=== PATIENT | female | born 1965 | race Caucasian/White ===

== ENCOUNTER → 2016-12-25 | Outpatient (CLI) | payer OTHER ==
[~2016-12-25] MED LIST: ATOR10TA88 PO; BUPR-79 PO; BUPRTAB51 PO; CYM/60 PO; DULO60CA44 PO; GABA-113 PO; GABA800T PO; NAPR1TAB9 PO; NRN/300 PO; TRAM-10 PO; TRAZ50TA35 PO
--- NOTE | 2016-12-25 11:08 | DIAGNOSTIC IMAGING REPORT ---
RIGHT HAND MIN 3 VIEWS CLINICAL HISTORY: Right hand pain. COMPARISON: None. DISCUSSION: The bony mineralization appears normal. No fractures are visualized. There are tiny periarticular calcifications adjacent to the medial aspect of the distal interphalangeal joint of the index finger. There is a tiny erosion involving the base of the distal phalanx of the index finger. IMPRESSION: 1. No acute fractures 2. Tiny periarticular calcifications at the level the distal interphalangeal joint of the index finger. Electronically signed by: Pramod Mckeon M.D. 12/25/2016 11:06 AM Dictated Date/Time: 12/25/2016 11:05 AM
--- NOTE | 2016-12-26 13:14 | DIAGNOSTIC IMAGING REPORT ---
LEFT HAND MIN 3 VIEWS CLINICAL HISTORY: Left hand pain COMPARISON: None. DISCUSSION: 3 views reveal normal mineralization for age. No fractures or dislocations are visualized. There are no erosive or destructive changes. Minimal degenerative changes are evident. IMPRESSION: Minimal degenerative change. Normal study for age. Electronically signed by: Pramod Mckeon M.D. 12/26/2016 1:13 PM Dictated Date/Time: 12/26/2016 1:12 PM
== END | disposition home or self-care (01) ==
LOC: C.RDSM 16:14
PROVIDERS: ATTEND Physical Medicine & Rehabilitation Sports Medicine
DX: R52 Pain, unspecified (principal)

== ENCOUNTER → 2017-01-23 | Day surgery (SDC) | payer OTHER ==
[2017-01-10 08:22] VITALS: Ht 172.7 cm; Wt 90.9 kg
[~2017-01-23] VITALS: Ht 172.7 cm; Wt 90.9 kg
[~2017-01-23] MED LIST changes: +ATROPINE SULFATE 0.1 MG/ML 5ML SYR IV PRN; +BUPIVACAINE 0.5 % 5 MG/1 ML MPF 30ML VIAL ONE; -BUPRTAB51 PO; +CEFAZOLIN 2000 MG/60 ML D5W IV SCH; -DULO60CA44 PO; +EpHEDrine SULFATE INJ 50 MG/ML AMP IV PRN; +FENTANYL CITRATE INJ 50 MCG/1 ML 2 ML VIAL ONE; -GABA-113 PO; +LACTATED RINGER'S 1000ML 1,000 ML IV SCH; +LIDOCAINE HCL 2% LOCAL 20 ML VIAL ONE; +MIDAZOLAM HCL 1 MG/ML 2ML VIAL ONE; +SODIUM CHLORIDE 0.9% 1000ML 1,000 ML IV SCH; -TRAM-10 PO
--- NOTE | 2017-01-23 06:47 | History & Physical Bridge Note ---
H&P Re-Evaluation Bridge Note: I have examined the patient, reviewed the History & Physical and in the interval since the performance of the History & Physical I have noted the following changes of clinical significance: No changes noted
--- NOTE | 2017-01-23 06:49 | Discharge Instructions ---
Discharge Instructions Date of Service Jan 23, 2017. Visit Reason for Visit: Left Trigger Thumb Discharge Discharge Diagnosis / Problem: same Discharge Goals Goal(s): Decrease discomfort, Improve function Medications Stopped Medications Name(s): na Restart Stopped Medication(s): resume all scripts Activity Recommendations Activity Limitations: as noted below Lifting Limitations: until after follow-up appointment Exercise/Sports Limitations: until after follow-up appointment May Resume Sexual Activity: when tolerated Shower/Bathe: keep incision dry Driving or Machine Use: no limitations Anesthesia . Post Anesthesia Instructions: If you have had General Anesthesia or IV Sedation: * Do not drive today. * Resume driving when surgeon permits. * Do not make important decisions or sign legal documents today. * Call surgeon for: 1. Temperature elevations greater than 101 degrees F. 2. Uncontrollable pain. 3. Excessive bleeding. 4. Persistent nausea and vomiting. 5. Medication intolerance (nausea, vomiting or rash). * For nausea and vomiting use only clear liquids such as: tea, soda, bouillon until nausea subsides, then gradually increase diet as tolerated. * If you have any concerns or questions, call your surgeon's office. If physician is unavailable and it is an emergency, call 911 or go to the nearest emergency room. . Instructions / Follow-Up Instructions / Follow-Up The following are instructions to follow after minor hand surgery. ACTIVITY RECOMMENDATIONS: * Minimize activity until your first visit after surgery. * No excessive walking, jogging, sports or laboring. * Return to activity is individualized. Most patients are able to return to everyday activities within 2 weeks. * Return to sports or intensive labor usually occurs at 1-2 months. * DRIVING: Driving may be resumed when you feel you have adequate pain control and use of the hand. * BATHING: You may shower or sponge-bathe immediately after surgery. The dressing will need to be covered with a plastic bag or plastic wrap until the dressing is changed on the fourth or fifth day after surgery. Once the dressing has been changed on the fourth or fifth day after surgery, you may shower and get the incision wet. * Wash with regular soap and water. * Do not bathe (submerge the incision), soak, swim or use a hot tub until the incision is completely healed over with normal skin and the doctor has given the OK to proceed. * There is no need to apply any ointments, powders or salves to your incision. * Do not apply alcohol or hydrogen peroxide directly to the incision. Diluted peroxide (50:50 mixture with sterile saline) may be used to clean dried blood from around the incision area. WORK/SCHOOL: * You may return to sedentary work or school when you are feeling comfortable. This is usually 3-7 days after surgery. * Expect increased discomfort with increased activity. Continue to elevate and ice the hand as much as possible. DIET: * Resume previous diet. MEDICATIONS: * You will have a prescription for pain medication and an anti-inflammatory medication after surgery. Use the pain pills for severe pain and the anti-inflammatory for less severe pain. * Once the pain pills have run out, try to use the anti-inflammatory. If this is not effective then contact the office for assistance. * The pain medication may cause nausea, constipation and sleepiness. You should see how they affect you before driving or similar activity. * The anti-inflammatory may cause stomach upset and bleeding. If this occurs, let your doctor know immediately . * Some patients may need blood clot prevention. This can be done with either a pill or a simple shot. Your doctor will advise you on when to begin these medications and how to take them. * Do not take aspirin or other anti-inflammatory products (i.e. Advil or Aleve ) if taking blood thinner medication. * Take a stool softener like Colace or a stimulant like Senokot to prevent constipation. SPECIAL CARE INSTRUCTIONS: ICE: * Do not apply ice directly to the skin. * Use a thin dressing or stockinet between the skin and ice bag. The dressing in place after surgery will suffice. * Apply ice for 20-30 minutes and repeat every 2-4 hours. This is especially important for the first 3-7 days after surgery. * Once the pain improves, use ice as needed. ELEVATION: * Keep your hand elevated at or above the level of your heart as much as possible. * Expect some increased discomfort and swelling if you allow your hand to hang down for any length of time. DRESSING: * Your dressing will be changed 4-5 days after surgery by the physical therapist or physician's marketing administrative assistant. Leave your dressing intact until this time. * You may then change your dressing daily with clean dry gauze or Band-aids and a soft wrap or stockinet. * Always wash your hands prior to touching the incision area. * Once the stitches are removed, you may leave the wound open to air or cover with a thin bandage. * There is no need to apply any ointments, powders or salves to your incision. * Expect some bloody drainage for the first few days after surgery. * Leave the tape strips in place (if present) for 5-7 days. * The initial dressing after surgery may become soaked with blood or fluid which is normal. You may reinforce your dressing with clean, dry gauze as needed. BRACE: * Bracing is generally not needed after routine hand surgery. THERAPY: * Physical therapy may be prescribed after your surgery. * For carpal tunnel and trigger digit surgery you may begin moving your fingers and wrist immediately after surgery as tolerated. * Be careful to not overuse. * Once the sutures are removed, further range of motion exercises can be performed. * Hand incisions may be very sensitive for a few months after surgery so avoid excessive pressure on the incision. If necessary, use a padded weightlifters' glove. * You may massage the incision with skin cream to make it less sensitive and reduce scarring. * Hand strength usually returns with normal use. * If needed, squeezing a soft sponge or Play-dough may help. * Your doctor will recommend physical therapy if necessary. PROBLEMS/QUESTIONS: * If you have any problems such as severe pain, numbness, tingling or high fevers or if you have any questions, please contact the office at [phone]. * It is not uncommon to have some numbness and tingling after the surgery especially if you have had a nerve block done. This should gradually improve over the first 1- 2 days. If this persists longer or worsens then contact the office. FOLLOW UP VISIT: * If not already scheduled, please call the office at to schedule follow-up appointments for approximately 10 days, 6 weeks and 3 months after surgery. Diet Recommendations Recommended Home Diet: resume previous diet Procedures Procedures Performed: left trigger release Pending Studies Studies pending at discharge: no Medical Emergencies . Who to Call and When: Medical Emergencies: If at any time you feel your situation is an emergency, please call 911 immediately. . Non-Emergent Contact Non-Emergency issues call your: Specialist Call Non-Emergent contact if: temperature is above 101.5 . . "Provider Documentation" section prepared by Jensen Panda.
--- NOTE | 2017-01-23 08:07 | Anesthesia Progress Nt - [facility] ---
Anesthesia Post Op Note Date & Time Jan 23, 2017 at 08:07 Vital Signs Pain Intensity: 4 Vital Signs Past 12 Hours Date Time Temp Pulse Resp B/P Pulse Ox O2 Delivery O2 Flow Rate FiO2 01/23/17 06:37 36.8 79 18 138/90 98 Room Air Notes Mental Status: alert / awake / arousable, participated in evaluation Pt Amnestic to Procedure: Yes Nausea / Vomiting: adequately controlled Pain: adequately controlled Airway Patency, RR, SpO2: stable & adequate BP & HR: stable & adequate Hydration State: stable & adequate Anesthetic Complications: no major complications apparent
[2017-01-23 08:09] VITALS: TEMP 36.6
--- NOTE | 2017-01-23 08:09 | [facility] Post Operative Brief Note ---
Immediate Operative Summary Operative Date Jan 23, 2017. Pre-Operative Diagnosis Left Trigger Thumb Post-Operative Diagnosis Same Procedure(s) Performed Left Thumb Open A1 Dustin Release Surgeon Dr Panda Raw Sampler Surgeon(s) Agusto Carlisle PA-C Estimated Blood Loss Trace Findings trigger with tendon fraying Fluids (cc crystalloids) see anesthesia report Specimens None Drains none Anesthesia local/sedation Complication(s) None Disposition Recovery Room / PACU
--- NOTE | 2017-01-23 08:28 | OPERATIVE REPORT ---
DATE OF OPERATION: 01/23/2017 SURGEON: Dr. Jensen Panda. INSPECTOR WREATH: Abiel Carlisle PA-C. No resident or fellow available. PREOPERATIVE DIAGNOSIS: Left trigger thumb. POSTOPERATIVE DIAGNOSIS: Same. OPERATION PERFORMED: Left trigger thumb release. PERIOPERATIVE SITUATION: Medically cleared female with intractable thumb triggering bilaterally, left and right, wants to proceed with a left first. OPERATION: The patient was appropriately identified, site verified, consent verified, and 2 grams of Ancef confirmed as being given. The left upper extremity was injected with 3 mL of 0.5% Marcaine plain and 3 mL of 2% plain lidocaine in the area of the MCP flexion crease of the left thumb. The arm was then prepped and draped in the usual routine fashion with a forearm tourniquet. The tourniquet was inflated to 250 mmHg after exsanguination of limb with a rubber Esmarch bandage for a total of 10 minutes. A curvilinear incision was made based over the MCP joint. Full thickness flaps raised. Care was taken to protect the digital nerves, which were identified, but not dissected cleanly. The area of the mass of the flexor cyst was identified. This area was then dissected with the [place] elevator and fully identified from proximal to distal and then released. There was some fraying of the tendon, which was debrided. The floor of the canal of the flexor sheath had no masses. The patient was then asked to move her finger through a full range of motion and there was no catching. The wound was then irrigated and closed with horizontal 3-0 nylon mattress sutures, Dermabond and a light dressing. The patient was then transferred to [facility] area in satisfactory condition having tolerated the procedure well. ESTIMATED BLOOD LOSS: Trace. CRYSTALLOID: Per anesthesia report. I attest to the content of the Intraoperative Record and any orders documented therein. Any exceptions are noted below. MTDD
[2017-01-23 08:44] VITALS: BP 123/80; PULSE 67; O2SAT 98
--- NOTE | 2017-01-23 08:51 | OPERATIVE REPORT ---
PREOPERATIVE DIAGNOSIS: Left thumb trigger digit. POSTOPERATIVE DIAGNOSIS: Left thumb same. PROCEDURE: Left thumb open trigger digit release. SURGEON: Dr. Panda. OUTSOLE SKIVER: Abiel Carlisle PA-C. HISTORY OF PRESENT ILLNESS: This 51-year-old white female presented to the office with complaints of triggering and pain in her left thumb. She had tried conservative care measures without success. She elected to proceed with surgical intervention after being educated about potential risks and outcomes. OPERATION: The patient was taken to the operating room where she was given local anesthetic and sedation. She was prepped and draped in the usual sterile fashion. Please see Dr. Panda's operative report for specifics of the procedure. I was present for the entire case from initial patient positioning through final wound closure. Assistance was provided in tissue retraction, hemostasis, and final wound closure. The patient was taken to phase 2 recovery in satisfactory condition. BISI
== END | disposition home or self-care (01) ==
LOC: X.SURG 06:20
PROVIDERS: ATTEND Physical Medicine & Rehabilitation Sports Medicine
DX: M65.312 Trigger thumb, left thumb (principal); Z88.0 Allergy status to penicillin

== ENCOUNTER → 2017-03-13 | Day surgery (SDC) | payer OTHER ==
[2017-02-21 09:56] VITALS: Ht 172.7 cm; Wt 90.9 kg
[~2017-03-13] VITALS: Ht 172.7 cm; Wt 90.9 kg
[~2017-03-13] MED LIST changes: +ATOR10TA82 PO; -ATOR10TA88 PO; -BUPIVACAINE 0.5 % 5 MG/1 ML MPF 30ML VIAL ONE; +BUPIVACAINE 0.5 % 5 MG/1 ML PF 10ML VIAL ONE; +FENTANYL CITRATE INJ 50 MCG/1 ML 2 ML VIAL IV PRN; +LIDOCAINE HCL 2% 2 ML VIAL (20MG/ML) ONE; +ONDANSETRON INJ 2 MG/ML 2 ML VIAL IV PRN; +ONDANSETRON INJ 2 MG/ML 2 ML VIAL ONE; +PROPOFOL IV EMULSION 10 MG/ML 20 ML VIAL IV ONE
--- NOTE | 2017-03-13 06:40 | Discharge Instructions ---
Discharge Instructions Date of Service March 13, 2017. Visit Reason for Visit: Right Trigger Thumb Discharge Discharge Diagnosis / Problem: same Discharge Goals Goal(s): Decrease discomfort, Improve function Medications Stopped Medications Name(s): na Restart Stopped Medication(s): resume all meds as directed by scripts Activity Recommendations Activity Limitations: as noted below Lifting Limitations: until after follow-up appointment Exercise/Sports Limitations: until after follow-up appointment May Resume Sexual Activity: when tolerated Shower/Bathe: keep incision dry Driving or Machine Use: no limitations Anesthesia . Post Anesthesia Instructions: If you have had General Anesthesia or IV Sedation: * Do not drive today. * Resume driving when surgeon permits. * Do not make important decisions or sign legal documents today. * Call surgeon for: 1. Temperature elevations greater than 101 degrees F. 2. Uncontrollable pain. 3. Excessive bleeding. 4. Persistent nausea and vomiting. 5. Medication intolerance (nausea, vomiting or rash). * For nausea and vomiting use only clear liquids such as: tea, soda, bouillon until nausea subsides, then gradually increase diet as tolerated. * If you have any concerns or questions, call your surgeon's office. If physician is unavailable and it is an emergency, call 911 or go to the nearest emergency room. . Diet Recommendations Recommended Home Diet: resume previous diet Procedures Procedures Performed: right trigger thumb release Pending Studies Studies pending at discharge: no Medical Emergencies . Who to Call and When: Medical Emergencies: If at any time you feel your situation is an emergency, please call 911 immediately. . Non-Emergent Contact Non-Emergency issues call your: Specialist Call Non-Emergent contact if: temperature is above 101.5 . . "Provider Documentation" section prepared by Jensen Panda. .
[2017-03-13 07:22] VITALS: TEMP 36.6
--- NOTE | 2017-03-13 07:22 | [facility] Post Operative Brief Note ---
Immediate Operative Summary Operative Date March 13, 2017. Pre-Operative Diagnosis Right Trigger Thumb Post-Operative Diagnosis Same Procedure(s) Performed Right Trigger Thumb Release Surgeon Dr. Panda Jelly Filter Tender Surgeon(s) Agusto Carlisle PA-C Estimated Blood Loss Trace Findings trigger/tendon fraying Fluids (cc crystalloids) see anesthesia report Specimens None Drains none Anesthesia local/sedation Complication(s) None Disposition Recovery Room / PACU
--- NOTE | 2017-03-13 07:36 | OPERATIVE REPORT ---
DATE OF OPERATION: 03/13/2017 SURGEON: Dr. Panda. NETWORK DESIGN ARCHITECT: Abiel Carlisle PA-C. No resident or fellow available. PREOPERATIVE DIAGNOSIS: Trigger thumb right. POSTOPERATIVE DIAGNOSIS: Same. OPERATION PERFORMED: Right trigger thumb release. ANESTHESIA: Local by surgeon; sedation by anesthesia. PERIOPERATIVE SITUATION: Medically cleared female with intractable thumb locking and catching. Has some degenerative disease throughout the hand. This will not address that. She understands this is just for her trigger thumb. PROCEDURE: The patient appropriately identified, site verified, consent verified, 2 grams of Ancef confirmed as being given. The area was injected with 4 mL of 0.5% plain Marcaine and 4 mL of 2% plain lidocaine. The arm was then prepped in usual routine fashion. Tourniquet inflated to 250 mmHg after exsanguination of limb with a rubber Esmarch bandage for a total of approximately 10 minutes. An incision was then made based at the MCP joint. Flaps raised. Care taken to protect the digital nerves to the thumb. The flexor mechanism identified and the levi identified proximally. It was nicked and then split with the scissors up into the most proximal aspect of the oblique levi. The tendon was then noted to have some fraying; this was debrided, it was very superficial. Tendon had good continuity. Patient had good active extension and flexion of the thumb under command. The wound was then irrigated and then closed with horizontal and simple mattress 4-0 nylon suture, Dermabond and a light dressing. ESTIMATED BLOOD LOSS: Trace. CRYSTALLOID: Per anesthesia. No DVT prophylaxis required. I attest to the content of the Intraoperative Record and any orders documented therein. Any exceptio ns are noted below.
--- NOTE | 2017-03-13 07:47 | Anesthesia Progress Nt - [facility] ---
Anesthesia Post Op Note Date & Time March 13, 2017 at 07:47 Vital Signs Pain Intensity: 0 Vital Signs Past 12 Hours Date Time Temp Pulse Resp B/P Pulse Ox O2 Delivery O2 Flow Rate FiO2 03/13/17 07:22 36.6 75 18 109/71 96 Room Air 03/13/17 06:27 37.1 79 20 134/87 97 Room Air Notes Mental Status: alert / awake / arousable, participated in evaluation Pt Amnestic to Procedure: Yes Nausea / Vomiting: adequately controlled Pain: adequately controlled Airway Patency, RR, SpO2: stable & adequate BP & HR: stable & adequate Hydration State: stable & adequate Anesthetic Complications: no major complications apparent
[2017-03-13 07:49] VITALS: BP 133/82; PULSE 70; O2SAT 100
--- NOTE | 2017-03-13 12:06 | OPERATIVE REPORT ---
PREOPERATIVE DIAGNOSIS: Right trigger thumb. POSTOPERATIVE DIAGNOSIS: Right thumb same. PROCEDURE: Right open trigger thumb release. SURGEON: Dr. Panda. DIRECTOR OF NUCLEAR MEDICINE: Abiel Carlisle PA-C. HISTORY OF PRESENT ILLNESS: This 51-year-old white female presented to the office with complaints of right thumb triggering, locking, and catching. She had tried conservative care measures without success. She elected to proceed with surgical intervention after being educated about potential risks and outcomes. She previously had a successful trigger thumb release on the left. OPERATION: The patient was taken to the operating room where she was given local anesthetic and sedation. She was prepped and draped in the usual sterile fashion. Please see Dr. Panda's operative report for specifics of the procedure. I was present for the entire case from initial patient positioning through final wound closure. Assistance was provided in patient position, tissue retraction, final wound closure. The patient was taken to the recovery room in satisfactory condition.
== END | disposition home or self-care (01) ==
LOC: X.SURG 06:03
PROVIDERS: ATTEND Physical Medicine & Rehabilitation Sports Medicine
DX: M65.311 Trigger thumb, right thumb (principal); E78.00 Pure hypercholesterolemia, unspecified; M19.90 Unspecified osteoarthritis, unspecified site; E66.9 Obesity, unspecified

== ENCOUNTER → 2017-04-09 | Outpatient (CLI) | payer OTHER ==
[~2017-04-09] MED LIST changes: -ATROPINE SULFATE 0.1 MG/ML 5ML SYR IV PRN; -BUPIVACAINE 0.5 % 5 MG/1 ML PF 10ML VIAL ONE; -CEFAZOLIN 2000 MG/60 ML D5W IV SCH; -EpHEDrine SULFATE INJ 50 MG/ML AMP IV PRN; -FENTANYL CITRATE INJ 50 MCG/1 ML 2 ML VIAL IV PRN; -FENTANYL CITRATE INJ 50 MCG/1 ML 2 ML VIAL ONE; -LACTATED RINGER'S 1000ML 1,000 ML IV SCH; -LIDOCAINE HCL 2% 2 ML VIAL (20MG/ML) ONE; -LIDOCAINE HCL 2% LOCAL 20 ML VIAL ONE; -MIDAZOLAM HCL 1 MG/ML 2ML VIAL ONE; -ONDANSETRON INJ 2 MG/ML 2 ML VIAL IV PRN; -ONDANSETRON INJ 2 MG/ML 2 ML VIAL ONE; -PROPOFOL IV EMULSION 10 MG/ML 20 ML VIAL IV ONE; -SODIUM CHLORIDE 0.9% 1000ML 1,000 ML IV SCH
--- NOTE | 2017-04-09 10:13 | DIAGNOSTIC IMAGING REPORT ---
MRI OF THE LEFT KNEE CLINICAL HISTORY: Chronic left knee pain. Osteoarthritis. COMPARISON STUDY: Radiographs of the left knee dated 10/23/2016. TECHNIQUE: MRI of the left knee was performed utilizing proton density, T1, and T2-weighted sequences in the axial, sagittal, coronal planes. IV contrast was not administered for this examination. The examination is significantly degraded by open MRI technique. FINDINGS: Menisci: There is increased signal identified within the posterior horn of both the medial and lateral menisci, greatest in the medial meniscus. This does not clearly extend to the articular surface, and this could represent mucoid degeneration versus intrasubstance tear. Ligaments: The anterior and posterior cruciate ligaments are intact. The medial and lateral collateral ligaments are within normal limits. Extensor mechanism: The extensor mechanism is intact. Hoffa's fat pad is normal in appearance. There is increased signal within the suprapatellar fat pad, best seen on sagittal T2 fat-sat image #13. Articular cartilage and bone: There is mild chondromalacia patella, with approximately 50% thinning of the articular cartilage at the patellar apex and along the lateral facet. Foci of greater than 50% fissuring are observed. No full-thickness cartilage loss is seen and there is no reactive marrow edema. There is approximately 50% thinning of the articular cartilage along the weightbearing surface in the medial compartment. Particular cartilage of the lateral compartment appears maintained. There are tiny marginal osteophytes. There is no MRI evidence of fracture. Joint effusion: There is a moderate to large joint effusion. Soft tissues: Prepatellar soft tissue edema is noted. The musculature surrounding the knee joint is normal in bulk and signal intensity. IMPRESSION: 1. Moderate to large joint effusion. 2. Mild chondromalacia patella. There is also mild degenerative thinning of the articular cartilage along the weightbearing surface in the medial compartment. No full-thickness cartilage loss or reactive marrow edema is identified. 3. There is increased signal identified within the posterior horns of the menisci, medial greater than lateral. This does not clearly extend to the articular surface, and could represent mucoid degeneration versus intrasubstance tearing. 4. There is nonspecific edema within the suprapatellar fat pad. This could be seen in setting of the quadriceps fat pad impingement syndrome. Clinical correlation will be required. 5. Prepatellar soft tissue edema. 6. The collateral ligaments and the cruciate ligaments are maintained. Electronically signed by: Jay Morgan M.D. 04/09/2017 10:12 AM Dictated Date/Time: 04/09/2017 10:03 AM
== END | disposition home or self-care (01) ==
LOC: C.OPENMRI 08:08
PROVIDERS: ATTEND Physical Medicine & Rehabilitation Sports Medicine
DX: M17.12 Unilateral primary osteoarthritis, left knee (principal); M25.462 Effusion, left knee; R93.7 Abnormal findings on diagnostic imaging of other parts of musculoskeletal system; R60.0 Localized edema

== ENCOUNTER → 2017-06-05 | Day surgery (SDC) | payer OTHER ==
[2017-05-15 14:04] VITALS: Ht 170.2 cm; Wt 88.6 kg
[~2017-06-05] VITALS: Ht 170.2 cm; Wt 88.6 kg
[~2017-06-05] MED LIST changes: -ATOR10TA82 PO; +ATOR10TA88 PO; +ATROPINE SULFATE 0.1 MG/ML 5ML SYR IV PRN; +BUPIVACAINE/EPINEPHRINE 0.5% MPF 1:200,000 10 ML VIAL ONE; +CEFAZOLIN 2000 MG/60 ML D5W IV SCH; +DEXAMETHASONE SOD INJ 4 MG/ML VIAL ONE; +EpHEDrine SULFATE INJ 50 MG/ML AMP IV PRN; +EpHEDrine SULFATE INJ 50 MG/ML AMP ONE; +FENTANYL CITRATE INJ 50 MCG/1 ML 2 ML VIAL IV PRN; +FENTANYL CITRATE INJ 50 MCG/1 ML 2 ML VIAL ONE; +HYDROCODONE/ACETAMOPHEN 5/325MG TAB PO PRN; +KETOROLAC TROMETHAMINE 30 MG/ML VIAL ONE; +LACTATED RINGER'S 1000ML 1,000 ML IV SCH; +LIDOCAINE HCL 2% 2 ML VIAL (20MG/ML) ONE; +MIDAZOLAM HCL 1 MG/ML 2ML VIAL ONE; +MoRPHine SULFATE PF 1 MG/ML 10 ML AMP/VIAL ONE; -NAPR1TAB9 PO; -NRN/300 PO; +ONDANSETRON INJ 2 MG/ML 2 ML VIAL IV PRN; +ONDANSETRON INJ 2 MG/ML 2 ML VIAL ONE; +PROPOFOL IV EMULSION 10 MG/ML 20 ML VIAL IV ONE; +SODIUM CHLORIDE 0.9% 1000ML 1,000 ML IV SCH
--- NOTE | 2017-06-05 06:41 | History & Physical Bridge Note ---
H&P Re-Evaluation Bridge Note: I have examined the patient, reviewed the History & Physical and in the interval since the performance of the History & Physical I have noted the following changes of clinical significance: consent obtained,No changes noted
--- NOTE | 2017-06-05 06:43 | Discharge Instructions ---
Discharge Instructions Date of Service Jun 05, 2017. Visit Reason for Visit: Left Knee Degenerative Medial Meniscus Tear Discharge Discharge Diagnosis / Problem: same Discharge Goals Goal(s): Decrease discomfort, Improve function Medications Stopped Medications Name(s): na Restart Stopped Medication(s): use all med scripts as directed Activity Recommendations Activity Limitations: as noted below Lifting Limitations: gradually increase as tolerated Exercise/Sports Limitations: until after follow-up appointment May Resume Sexual Activity: when tolerated Shower/Bathe: keep incision dry Driving or Machine Use: resume 1 day after discharge Weightbearing Status: Left weightbearing (as tolerated) Anesthesia . Post Anesthesia Instructions: If you have had General Anesthesia or IV Sedation: * Do not drive today. * Resume driving when surgeon permits. * Do not make important decisions or sign legal documents today. * Call surgeon for: 1. Temperature elevations greater than 101 degrees F. 2. Uncontrollable pain. 3. Excessive bleeding. 4. Persistent nausea and vomiting. 5. Medication intolerance (nausea, vomiting or rash). * For nausea and vomiting use only clear liquids such as: tea, soda, bouillon until nausea subsides, then gradually increase diet as tolerated. * If you have any concerns or questions, call your surgeon's office. If physician is unavailable and it is an emergency, call 911 or go to the nearest emergency room. . Instructions / Follow-Up Instructions / Follow-Up The following are instructions to follow after your Arthroscopic Knee Surgery. ACTIVITY RECOMMENDATIONS: * Minimize activity until your first visit after surgery. * No excessive walking, jogging, sports or laboring. * Return to activity is individualized. Most patients are able to return to every day activities within one month. * Return to sports or intensive labor usually occurs at 2-3 months. * Driving is not permitted until at least your first postoperative visit at a minimum. Please ask your doctor when it is safe to resume driving. If you have an automatic vehicle and your left leg has been operated on, then you may begin driving as soon as you are comfortable and can drive safely. SCHOOL/WORK RECOMMENDATIONS: * You may return to sedentary work or school when you are feeling more comfortable. This is usually 3-7 days after surgery. * Expect increased discomfort with increased activity. Continue to elevate and ice the leg as much as possible. MEDICATIONS: * You will have a prescription for pain medication and an anti-inflammatory medication after surgery. * Use the pain medication for severe pain and the anti-inflammatory for less severe pain. Once the pain medication has run out, try to use the anti-inflammatory medication. If this is not effective, contact the office for assistance. * The pain medication may cause nausea, constipation and drowsiness. You should see how they affect you before driving or similar activity. * The anti-inflammatory medication may cause stomach upset and bleeding. If this occurs let your doctor know immediately . * Take a stool softener like Colace or a laxative like Senokot to prevent constipation. DIET: * Resume previous diet. SPECIAL CARE: ICE: You have the option of an ice cooler, gel packs or ice bags. * If you have an ice cooler, refer to the instructions for that device. The ice cooler may be used continuously. * If you do not have an ice cooler, you will need to use ice bags or gel packs. Do not apply ice directly to the skin. Use a thin dressing or erich shirt between the skin and ice bag. Apply ice for 20-30 minutes and repeat every 2-4 hours. This is especially important for the first 7-10 days after surgery. Once the pain improves, use ice as needed. ELEVATION: * Keep your leg elevated at or above the level of your heart as much as possible. * Expect some increased discomfort and swelling if you are standing for any length of time. * When lying down, avoid placing anything under your knee. Rather, prop your leg up by placing several pillows under your heel or calf. DRESSING: * Your dressing will be changed at your first therapy appointment approximately 4-5 days after surgery. Band-aids, tape strips or gauze may be applied. You may then change your dressing daily. * Reapply dressing followed by the Shar wrap or Tubi-channel sales manager stockinet and EBIce cooling pad (if chosen). * Always wash your hands prior to touching the incision area. * Once the stitches are removed, you may leave the wound open to air or cover with an Shar wrap or Tubi-channel sales manager stockinet. * If you have been given a white elastic stocking (BRITTANY hose), wear as much as possible for the first 1-3 weeks depending on swelling. * Expect some bloody drainage for the first few days after surgery. * Leave the tape strips, if present, in place for 5-7 days. * Band-aids and gauze may be changed daily. CRUTCHES: * You will need to use crutches after surgery. * You may gradually progress to full weight bearing as tolerated and wean off the crutches unless otherwise advised. * Your therapist can provide assistance weaning off crutches. * Patients who have a microfracture done may need to be toe-touch weight- bearing for 4-6 weeks. BATHING: * You may shower or sponge-bathe immediately after surgery. * The dressing will need to be covered with a plastic bag or plastic wrap until the dressing is changed on the fourth or fifth day after surgery. * Once the dressing has been changed on the fourth or fifth day after surgery, you may shower and get the incision wet. * Wash with regular soap and water. * Do not bathe (submerge the incision), soak, swim or use a hot tub until the incision is completely healed over with normal skin and the doctor has given the OK to proceed. * There is no need to apply any ointments, powders or salves to your incision. * Do not apply alcohol or hydrogen peroxide directly to the incision. * Diluted peroxide (50:50 mixture with sterile saline) may be used to clean dried blood from around the incision area. BRACE: * Bracing is generally not needed after routine Arthroscopic Knee surgery. THERAPY: * You will begin therapy four or five days after surgery. * Organized therapy with the therapist is important for the first 4-6 weeks after surgery. During that time you will attend therapy 1-3 times per week. * You will also need to do daily exercises for range of motion and strength as instructed. PROBLEMS/QUESTIONS: * If you have any problems such as severe pain, numbness, tingling or high fevers or if you have any questions, please contact the office at [phone]. * It is not uncommon to have some numbness and tingling after the surgery especially if you have had a nerve block done. This should gradually improve over the first 1- 2 days. If this persists longer or worsens please contact the office. FOLLOW UP VISIT: * If not already scheduled, please call the office at to schedule a follow-up appointment for 10 days, 6 weeks and 3 months after surgery. Diet Recommendations Recommended Home Diet: resume previous diet Procedures Procedures Performed: left knee scope debridement Pending Studies Studies pending at discharge: no Medical Emergencies . Who to Call and When: Medical Emergencies: If at any time you feel your situation is an emergency, please call 911 immediately. . Non-Emergent Contact Non-Emergency issues call your: Specialist Call Non-Emergent contact if: you have a fever, temperature is above 101.5, your pain is not controlled, wound has increased drainage, wound has increased redness, wound has increased pain, you have any medication questions . . "Provider Documentation" section prepared by Jensen Panda. .
--- NOTE | 2017-06-05 07:29 | [facility] Post Operative Brief Note ---
Immediate Operative Summary Operative Date Jun 05, 2017. Pre-Operative Diagnosis Left Knee Degenerative Medial Meniscus Tear Post-Operative Diagnosis djd PFJ/loose body/medial compartment djd Procedure(s) Performed EUA,Left Knee Arthroscopy, Debridement PFL removal loose body Surgeon Dr Panda Steel Buffer Surgeon(s) Agusto Carlisle PA-C Estimated Blood Loss Trace Findings see op note Fluids (cc crystalloids) 600cc Specimens None Drains none Anesthesia LMA/IA block Complication(s) None Disposition Recovery Room / PACU
--- NOTE | 2017-06-05 07:48 | OPERATIVE REPORT ---
DATE OF OPERATION: 06/05/2017 SURGEON: Dr. Panda. SEATING CAPTAIN: Abiel Carlisle PA-C. No resident or fellow available. PREOPERATIVE DIAGNOSIS: Degenerative disease, left knee with possible meniscus tear. POSTOPERATIVE DIAGNOSIS: 1. Degenerative patellofemoral joint with large articular flap unstable. 2. Loose body from same site and medial compartment. 3. Extensive synovitis. 4. Grade 3 degenerative disease, medial compartment. OPERATION PERFORMED: 1. Exam under anesthesia. 2. Diagnostic arthroscopy. 3. Arthroscopic debridement of loose body, medial compartment. 4. Incidental chondroplasty medial compartment. 5. Extensive debridement with loose articular flap of trochlea and patellofemoral joint synovial impingement grade 4 changes there. 6. Intact lateral compartment. PERIOPERATIVE SITUATION: Medically cleared female with intractable knee pain has failed conservative management. She was advised that this is likely an extended degenerative process. She states that she feels like something is catching and locking and wants to proceed with surgical treatment. Does not wish to have the knee replacement. Advised that this would not be a curative procedure and that mechanical symptoms are eliminated and she is happy with that. That would be the most that we could be expected. PROCEDURE: The patient appropriately identified, site verified, consent verified, 2 grams of Ancef confirmed as being given. Left lower extremity was examined revealing no ligamentous instability. It was then sterilely injected with 20 mL 0.5% Marcaine and 5 mg of Duramorph for postoperative pain control. The knee was then prepped and draped in usual routine fashion, the inframedial and inferolateral portals identified and the inferolateral was injected with 3 mL of 0.25% Marcaine with epinephrine as well as the inframedial portal. The joint was entered through the anterolateral inferolateral portal and inspection of the anteromedial surface then allowed needle localization and the medial portal made. Immediately encountered was a loose body in the medial compartment. This was debrided with a shaver; it was through articular cartilage. Medial compartment revealed an intact meniscus with grade 3 changes of the articular surfaces of the medial compartment. These were incidentally debrided. There was synovial impingement in both medial and lateral gutters and the patellofemoral joint. These were all debrided anteriorly and the osteophyte was developing off the medial eminence. The lateral compartment had intact lateral meniscus and grade 1 changes of the articular surfaces. The patellofemoral joint had a very large defect in the trochlea with pseudo-osteonecrotic area with a large articular flap that was impinging; this was debrided to a stable base. There was probably about 1 cm2 area. This was then viewed from the opposite side and debrided from the anterolateral portal to ensure the entire debridement and flap stability was created. Once this was done, the procedure was terminated. All instruments and fluid removed. The portals closed with 4-0 nylon, dressed with Xeroform, 4 x 4 gauze, sterile Webril, ABD pads and above knee BRITTANY stocking. The patient will be full weightbearing. DVT prophylaxis with Lovenox starting tomorrow. Overall prognosis for this knee is guarded. High probability of knee replacement sometime in the next year to 2 years. I attest to the content of the Intraoperative Record and any orders documented therein. Any exception s are noted below.
[2017-06-05 08:17] VITALS: TEMP 36.6
--- NOTE | 2017-06-05 08:33 | Anesthesia Progress Nt - [facility] ---
Anesthesia Post Op Note Date & Time Jun 05, 2017 at 08:33 Vital Signs Pain Intensity: 0 Vital Signs Past 12 Hours Date Time Temp Pulse Resp B/P (MAP) Pulse Ox O2 Delivery O2 Flow Rate FiO2 06/05/17 08:17 36.6 70 16 150/92 (111) 100 Room Air 06/05/17 08:11 135/84 06/05/17 08:09 72 15 96 06/05/17 08:09 37.2 69 20 135/84 99 Room Air 06/05/17 08:09 73 15 06/05/17 08:06 132/84 06/05/17 08:04 70 15 06/05/17 08:04 70 15 95 06/05/17 08:01 143/87 06/05/17 07:59 80 26 06/05/17 07:59 83 26 100 06/05/17 07:57 145/81 06/05/17 07:54 80 17 06/05/17 07:54 79 17 100 06/05/17 07:51 137/82 06/05/17 07:49 82 24 100 06/05/17 07:49 83 24 06/05/17 07:46 153/84 06/05/17 07:44 84 19 100 06/05/17 07:44 86 19 06/05/17 07:42 151/66 06/05/17 07:40 146/86 06/05/17 07:39 36.8 86 16 146/86 100 Mask 6 06/05/17 06:46 36.9 71 16 151/100 (117) 97 Room Air Notes Mental Status: alert / awake / arousable, participated in evaluation Pt Amnestic to Procedure: Yes Nausea / Vomiting: adequately controlled Pain: adequately controlled Airway Patency, RR, SpO2: stable & adequate BP & HR: stable & adequate Hydration State: stable & adequate Anesthetic Complications: no major complications apparent
[2017-06-05 08:37] VITALS: BP 147/89; PULSE 70; O2SAT 100
--- NOTE | 2017-06-05 11:41 | [facility] Operative Report ---
Operative Report Operative Date Jun 05, 2017. Pre-Operative Diagnosis Left Knee Degenerative Medial Meniscus Tear Post-Operative Diagnosis djd PFJ/loose body/medial compartment djd Procedure(s) Performed EUA,Left Knee Arthroscopy, Debridement PFJ and medial compartment, removal loose body Surgeon Dr Panda Outlet Manager Surgeon(s) Agusto Carlisle PA-C Estimated Blood Loss Trace Findings Degenerative joint disease, loose body Fluids (cc crystalloids) 600cc Specimens None Drains none Complication(s) None Indications This 51-year-old white female presented the office with complaints of left knee pain that was affecting her ADLs. She elected to proceed with surgical intervention after being educated about potential risks and outcomes. Preoperative MRI was obtained. Description of Procedure Patient was taken to the operating room where she was given general anesthesia. She was prepped and draped in usual sterile fashion. Please see Dr. Panda's operative report for specifics of the procedure. I was present for the entire case from initial patient positioning through final wound closure. Assistance was provided in patient positioning, arthroscopy, and final wound closure. Patient was taken to the recovery room in satisfactory condition. I attest to the content of the Intraoperative Record and any orders documented therein. Any exceptions are noted below.
== END | disposition home or self-care (01) ==
LOC: X.SURG 06:11
PROVIDERS: ATTEND Physical Medicine & Rehabilitation Sports Medicine
DX: M17.12 Unilateral primary osteoarthritis, left knee (principal); M25.362 Other instability, left knee; M65.862 Other synovitis and tenosynovitis, left lower leg; E78.00 Pure hypercholesterolemia, unspecified; E66.9 Obesity, unspecified; F41.9 Anxiety disorder, unspecified; Z87.891 Personal history of nicotine dependence; Z79.899 Other long term (current) drug therapy

== ENCOUNTER → 2017-09-24 | Outpatient (CLI) | payer OTHER ==
[~2017-09-24] MED LIST changes: +ATOR10TA82 PO; -ATOR10TA88 PO; -ATROPINE SULFATE 0.1 MG/ML 5ML SYR IV PRN; -BUPIVACAINE/EPINEPHRINE 0.5% MPF 1:200,000 10 ML VIAL ONE; -CEFAZOLIN 2000 MG/60 ML D5W IV SCH; -DEXAMETHASONE SOD INJ 4 MG/ML VIAL ONE; -EpHEDrine SULFATE INJ 50 MG/ML AMP IV PRN; -EpHEDrine SULFATE INJ 50 MG/ML AMP ONE; -FENTANYL CITRATE INJ 50 MCG/1 ML 2 ML VIAL IV PRN; -FENTANYL CITRATE INJ 50 MCG/1 ML 2 ML VIAL ONE; -HYDROCODONE/ACETAMOPHEN 5/325MG TAB PO PRN; -KETOROLAC TROMETHAMINE 30 MG/ML VIAL ONE; -LACTATED RINGER'S 1000ML 1,000 ML IV SCH; -LIDOCAINE HCL 2% 2 ML VIAL (20MG/ML) ONE; -MIDAZOLAM HCL 1 MG/ML 2ML VIAL ONE; -MoRPHine SULFATE PF 1 MG/ML 10 ML AMP/VIAL ONE; -ONDANSETRON INJ 2 MG/ML 2 ML VIAL IV PRN; -ONDANSETRON INJ 2 MG/ML 2 ML VIAL ONE; -PROPOFOL IV EMULSION 10 MG/ML 20 ML VIAL IV ONE; -SODIUM CHLORIDE 0.9% 1000ML 1,000 ML IV SCH
== END | disposition home or self-care (01) ==
LOC: C.RDSM 14:44
PROVIDERS: ATTEND Physical Medicine & Rehabilitation Sports Medicine
DX: M17.12 Unilateral primary osteoarthritis, left knee (principal)

== ENCOUNTER 2018-01-01 04:56 | Inpatient (IN) | payer OTHER ==
[2017-12-17 10:13] VITALS: BMI 32.0
--- NOTE | 2017-12-17 10:40 | PAT Medication Instructions ---
Service Date Dec 17, 2017. Current Home Medication List Atorvastatin (Lipitor), 1 TAB PO QAM Bupropion (Wellbutrin Sr), 150 MG PO BID Duloxetine HCl (Cymbalta), 2 CAP PO QAM Trazodone Hcl (Trazodone), 1.5 TAB PO HS Medication Instructions For Your Scheduled Surgery - Take the following medications the morning of surgery with a sip of water: Duloxetine HCl (Cymbalta), 2 CAP PO QAM Atorvastatin (Lipitor), 1 TAB PO QAM Bupropion (Wellbutrin Sr), 150 MG PO BID - Take the following medications as scheduled the night before surgery: Trazodone Hcl (Trazodone), 1.5 TAB PO HS Bupropion (Wellbutrin Sr), 150 MG PO BID If you have any questions please call us at [phone] or [phone] or [phone]
--- NOTE | 2017-12-17 11:42 | DIAGNOSTIC IMAGING REPORT ---
CHEST 2 VIEWS ROUTINE CLINICAL HISTORY: 52 years-old Female presenting with preoperative assessment. TECHNIQUE: PA and lateral views of the chest were obtained. COMPARISON: None. FINDINGS: Cardiomediastinal silhouette normal. Lungs and pleural spaces clear. Osseous structures normal. Upper abdomen normal. IMPRESSION: 1. No acute cardiopulmonary disease. Electronically signed by: Adolph Will M.D. 12/17/2017 11:41 AM Dictated Date/Time: 12/17/2017 11:41 AM
[2017-12-17 12:09] LABS: BASO % 0.9 %; BASO ABS # 0.04 K/uL (0-0.2); EOS % 3.4 %; EOS ABS # 0.16 K/uL (0-0.5); HEMATOCRIT 34.2 % (37-47); HEMOGLOBIN 11.5 g/dL (12.0-16.0); IG# 0.01 K/uL (0.00-0.02); LYMPH % 29.5 %; LYMPH ABS # 1.38 K/uL (1.2-3.4); MEAN CELL VOLUME 90.5 fL (80-100); MEAN CORPUSCULAR HEMOGLOBIN 30.4 pg (25-34); MEAN CORPUSCULAR HGB CONC 33.6 g/dl (32-36); MEAN PLATELET VOLUME 9.1 fL (7.4-10.4); MONO % 13.2 %; MONO ABS # 0.62 K/uL (0.11-0.59); NEUT % 52.8 %; NEUT ABS # 2.47 K/uL (1.4-6.5); PLATELET COUNT 294 K/uL (130-400); RED CELL DISTRIBUTION WIDTH CV 13.1 % (11.5-14.5); WHITE BLOOD COUNT 4.68 K/uL (4.8-10.8)
[2017-12-17 12:13] LABS: CALCIUM 8.9 mg/dl (8.5-10.1); CREATININE 0.74 mg/dl (0.60-1.20); POTASSIUM 4.6 mmol/L (3.5-5.1)
[2017-12-17 12:15] LABS: PTT PATIENT 25.4 SECONDS (21.0-31.0)
--- NOTE | 2017-12-24 17:47 | HISTORY & PHYSICAL EXAMINATION ---
DATE OF ADMISSION: 01/01/2018 CHIEF COMPLAINT: Left knee pain. HISTORY OF PRESENT ILLNESS: This 52-year-old white female presents to the office with complaints of left knee pain that she has had for over a year and a half. Pain has become worse with time. It is global throughout the knee. She does note occasional swelling. Occasional catching. No locking or buckling. No numbness or tingling. Pain is worse with activity and does affect her ADLs. She previously tried anti-inflammatories as well as topical anti-inflammatories, viscosupplementation, and previous knee arthroscopy with debridement without lasting improvement. She elects to proceed with surgical intervention in hopes of alleviating her pain. She does have known tricompartmental arthritis from her knee arthroscopy performed 06/05/2017. Preoperative imaging has been obtained. She elects to proceed with left total knee arthroplasty in hopes of alleviating her pain. PAST MEDICAL HISTORY: Significant for elevated cholesterol, anxiety, osteoarthritis, chronic low back pain, and obesity. PREVIOUS SURGERIES: Bilateral trigger thumb releases 2016, tubal ligation in 1992, pneumothorax, 1994 with chest tube placement. Ovarian cyst excision 2012, left knee arthroscopy with partial medial meniscectomy and debridement 06/05/2017. ALLERGIES: KNOWN ALLERGY TO PENICILLIN WHICH CAUSED RANDOM JOINT SWELLING AND RASH. ALSO, LEVAQUIN, WHICH CAUSED HIVES. SHE DOES FINE WITH ANCEF AND KEFLEX. FAMILY HISTORY: Noncontributory. CURRENT MEDICATIONS: Cymbalta unknown dose, Lipitor 10 mg p.o. daily, trazodone 50 mg p.o. at bedtime, Voltaren topical gel up to 4 times a day, Wellbutrin daily unknown dose. SOCIAL HISTORY: The patient is currently unemployed. Former cook. No tobacco use, quit in 2014. Occasional ETOH use. . REVIEW OF SYSTEMS: Significant for above stated conditions, otherwise unremarkable. PHYSICAL EXAMINATION: GENERAL: Well-developed, well-nourished middle aged white female in no acute distress. Sitting in a chair. Alert and oriented. SKIN: Warm and dry with good turgor. No rashes or lesions. No ecchymosis or erythema. Mild intra-articular effusion in the left knee. HEENT: Normocephalic, atraumatic. EYES: PERRLA, EOMI. Nares patent bilaterally without turbinate enlargement. Oropharynx without erythema or exudate. No lesions noted. Uvula midline. Oral mucosa moist. Fair dentition. HEART: RRR. No MGR. LUNGS: Clear to auscultation bilaterally. No crackles, rhonchi or wheezing. Good air movement. ABDOMEN: Bowel sounds present x4, soft, nontender. No organomegaly. Mild obesity. MUSCULOSKELETAL: Left knee evaluation reveals a lack of around 5 degrees of terminal extension. Flexion to greater than 100 degrees. Strength is 5/5 with fairly good quad tone. No defect in the patellar tendon or quadriceps tendon. There is discomfort with palpation over the medial and lateral joint lines. She also has discomfort with palpation over the peripatellar area. Ambulatory with a minimally antalgic gait. NEUROLOGIC: Gross sensation is intact across the lower extremities by soft touch. Peripheral pulses are 2+. Cranial nerves II-XII are intact. DATA: Arthroscopic imaging previously obtained shows end-stage disease in all 3 compartments. Radiographic imaging shows joint space narrowing and periarticular osteophytes as well. ASSESSMENT: Left knee degenerative joint disease. PLAN: Postoperative prescriptions for Percocet and Coumadin will be provided at discharge from the hospital. She will attend outpatient PT. She already has crutches. Preoperative lab work, EKG, and chest x-ray have been ordered. Medical clearance has been obtained from her PCP in [place]. Informed written consent will be obtained the morning of surgery.
[~2018-01-01] VITALS: Ht 170.2 cm; Wt 93.1 kg
[2018-01-01] VITALS (9 sets, daily range): BP systolic 98–154; BP diastolic 60–95; PULSE 63–78; TEMP 36.6–37; O2SAT 97–100; Ht 170.2 cm; Wt 93.1 kg
[~2018-01-01 04:56] MED LIST changes: -GABA800T PO
[2018-01-01] MEDS ORDERED: TRANEXAMIC ACID INJ 1,000 MG x 1 Bag Preop IV SCH ×2 (06:00)
[2018-01-01] MEDS ORDERED: CEFAZOLIN 2000MG IV PUSH 15 ML IV SCH (06:00)
[2018-01-01] MEDS ORDERED: LACTATED RINGER'S 1000ML 500 ML IV SCH (06:00)
[2018-01-01] MEDS ORDERED: ROPIVACAINE 5MG/ML 30 ML 150 MG, BUPIVACAINE 0.5% MPF INJ 30 ML, EpINEphrine HCL INJ 0.... INFIL SCH ×8 (06:00)
[2018-01-01] MEDS ORDERED: LACTATED RINGER'S 1000ML 1,000 ML IV SCH (06:00)
[2018-01-01] MEDS ORDERED: LACTATED RINGER'S 1000ML IV SCH (06:00)
[2018-01-01] MEDS ORDERED: ROPIVACAINE 5MG/ML 30 ML 150 MG, BUPIVACAINE/EPINEPHR 0.5% MPF 30 ML, KETOROLAC TROMETH... INFIL SCH ×7 (06:00)
--- NOTE | 2018-01-01 06:27 | History & Physical Bridge Note ---
H&P Re-Evaluation Bridge Note: I have examined the patient, reviewed the History & Physical and in the interval since the performance of the History & Physical I have noted the following changes of clinical significance: consent obtained all questions answered.No changes noted
[2018-01-01] MEDS ORDERED: ORTHO JOINT ANESTHETIC ONE (06:28)
[2018-01-01] MEDS ORDERED: POVIDONE-IODINE OP SOLN 30 ML BTL ONE (06:28)
[2018-01-01] MEDS ORDERED: ONDANSETRON INJ 2 MG/ML 2 ML VIAL IV PRN ×2 (06:30→08:30)
[2018-01-01] MEDS ORDERED: ATROPINE SULFATE 0.1 MG/ML 5ML SYR IV PRN (06:30)
[2018-01-01] MEDS ORDERED: PHENYLEPHRINE 100MCG/ML 5ML SYR IV PRN (06:30)
[2018-01-01] MEDS ORDERED: FENTANYL CITRATE INJ 50 MCG/1 ML 2 ML VIAL IV PRN (06:30)
[2018-01-01] MEDS ORDERED: EpHEDrine SULFATE INJ 50 MG/ML AMP IV PRN (06:30)
[2018-01-01] MEDS ORDERED: PROMETHAZINE HCL INJ 12.5 MG in SODIUM CHLORIDE 0.9% 50ML 50 ML IV PRN (06:30)
[2018-01-01] MEDS ORDERED: HYDROmorphone INJ 1 MG/ML SYR IV PRN (06:30)
[2018-01-01] MEDS ORDERED: BUPIVACAINE 0.5 % 5 MG/1 ML PF 10ML VIAL ONE (06:33)
[2018-01-01] MEDS ORDERED: MIDAZOLAM HCL 1 MG/ML 2ML VIAL ONE ×4 (06:34→07:38)
[2018-01-01] MEDS ORDERED: BUPIVACAINE 0.25% 30 ML VIAL ONE (06:34)
[2018-01-01] MEDS ORDERED: FENTANYL CITRATE INJ 50 MCG/1 ML 2 ML VIAL ONE ×2 (06:35→06:46)
[2018-01-01] MEDS ORDERED: LIDOCAINE 2% 20 MG/ML 5ML SYR IV ONE (07:25)
[2018-01-01] MEDS ORDERED: PROPOFOL IV EMULSION 10 MG/ML 20 ML VIAL IV ONE (07:25)
[2018-01-01] MEDS ORDERED: ONDANSETRON INJ 2 MG/ML 2 ML VIAL ONE (07:25)
--- NOTE | 2018-01-01 08:23 | [facility] Post Operative Brief Note ---
Immediate Operative Summary Operative Date Jan 01, 2018. Pre-Operative Diagnosis Left Knee Degenerative Joint Disease Post-Operative Diagnosis Left Knee Degenerative Joint Disease Procedure(s) Performed Left Total Knee Arthroplasty Surgeon Dr. Panda Type Casting Machine Operator Surgeon(s) THONG Aguirre Estimated Blood Loss 75 ml Findings Consistent with Post-Op Diagnosis severe medial disease and trochlear disease Fluids (cc crystalloids) 2000cc Specimens A. Left Knee Bone and Tissue Drains None Anesthesia Type MAC Spinal Regional Complication(s) none Disposition Accompanied Pt To Recover: no Disposition: Recovery Room / PACU
[2018-01-01] MEDS ORDERED: ALUMINUM/MAGNESIUM/SIMETH (MAALOX MAX) 30 ML UDC PO PRN (08:30)
[2018-01-01] MEDS ORDERED: METOCLOPRAMIDE HCL INJ 5 MG/ML 2 ML VIAL IV PRN (08:30)
[2018-01-01] MEDS ORDERED: BISACODYL 10 MG SUPP PR PRN (08:30)
[2018-01-01] MEDS ORDERED: ACETAMINOPHEN IV 100 ML IV PRN (08:30)
[2018-01-01] MEDS ORDERED: MoRPHine SULFATE 2 MG/ML CARP IV PRN (08:30)
[2018-01-01] MEDS ORDERED: MAGNESIUM HYDROXIDE SUSP 30 ML UDC PO PRN (08:30)
[2018-01-01] MEDS ORDERED: DiphenhydrAMINE HCL 50 MG/ML VIAL IV PRN (08:30)
[2018-01-01] MEDS ORDERED: ACETAMINOPHEN 325 MG TAB PO PRN (08:30)
--- NOTE | 2018-01-01 08:43 | OPERATIVE REPORT ---
DATE OF OPERATION: 01/01/2018 SURGEON: Dr. Panda. GRINDER MILL OPERATOR: Abiel Carlisle PA-C. SECOND GRINDER MILL OPERATOR: Yo, medical student. PREOPERATIVE DIAGNOSIS: Osteoarthritis, left knee. POSTOPERATIVE DIAGNOSIS: Same. OPERATION PERFORMED: Cemented left total knee replacement. PERIOPERATIVE SITUATION: Medically cleared female with intractable knee pain, has failed conservative management including arthroscopic debridement of her left knee. Continues to have grade 4 disease with marked synovial reaction, synovitis and loose articular debris. At this point in time, she is requesting total knee replacement. PROCEDURE: The patient appropriately identified, site verified, consent verified, 2 grams of Ancef confirmed as being given. The left lower extremity was prepped and draped in usual routine fashion. There was a moderate effusion. Tourniquet inflated to 300 mmHg after exsanguination of limb with a rubber Esmarch bandage for a total of approximately 52 minutes. Midline exposure utilized. Parapatellar arthrotomy performed. Synovectomy completed. There were grade 4 changes in the trochlea and in the entire medial compartment. The osteophytes were resected, distal femur then entered with a drill bit, cruciates resected, the tibia subluxated, the medial and lateral meniscus resected. Distal femur resected 12 mm, proximal tibia resected 4 mm, the extension gap was excellent. Femur was sized to a 3, appropriate cutting block applied, and the anterior and posterior condylar and chamfer cuts made. The tibia was then subluxated and sized to a 3, and appropriate reaming and broaching carried out. The size 3 trial with a 12 spacer had excellent stability and excellent tracking of the patella. The patella was then incised roughly at 38 and resection made leaving 16 mm, the seating holes made, and the 38 trial tracked well. The wound was then injected with Orthomix. All trial implants were then removed. The wound irrigated with Betadine, Pulsavac, then dried and then the permanent cemented into position. After 12 minutes, the tourniquet deflated. Minor bleeding points controlled with electrocautery. After 14 minutes, the knee flexed. The trial spacer removed. The knee irrigated with Betadine, Pulsavac, Betadine, and then the permanent liner seated, knee reduced and closed with #2 Vicryl, #1 Vicryl, 2-0 Vicryl and stainless steel clips. Appropriate dressing applied. The patient transferred to recovery room in satisfactory condition, having tolerated the procedure well. Estimated blood loss was 75 mL. Crystalloid 2000 mL. Bone pathology pending. Orthomix injected. Two bags of Palacos G cement. SUMMARY OF IMPLANTS: Size 3 femur posterior cruciate substituting, size 3 rotating platform tibial keel tray, size 3 posterior cruciate substituting oval domed 3 pegged patella. Two bags of Palacos G cement. DVT prophylaxis, Coumadin. I attest to the content of the Intraoperative Record and any orders documented therein. Any exception s are noted below.
[2018-01-01] MEDS: ATORVASTATIN 10 MG TAB PO SCH (09:00)
[2018-01-01] MEDS: DULOXETINE HCL 60 MG CAP PO SCH (09:00)
--- NOTE | 2018-01-01 09:05 | DIAGNOSTIC IMAGING REPORT ---
L KNEE 1 OR 2 VIEWS ROUTINE CLINICAL HISTORY: 52 years-old Female presenting with AP/LATERAL IN PACU LEFT KNEE. TECHNIQUE: Frontal and lateral views of the left knee were obtained. COMPARISON: 09/24/2017. FINDINGS: Post surgical changes of total left knee arthroplasty with patellar resurfacing. Expected intra-articular and soft tissue emphysema. Overlying skin ce noted. No malalignment. No periprosthetic fracture. No hardware convocation. Osteopenia may be present. IMPRESSION: Expected postsurgical findings status post total left knee arthroplasty with patellar resurfacing. Electronically signed by: Adolph Will M.D. 01/01/2018 9:03 AM Dictated Date/Time: 01/01/2018 8:58 AM
--- NOTE | 2018-01-01 09:16 | Anesthesiology Progress Note ---
Anesthesia Post Op Note Date & Time Jan 01, 2018 at 09:16 Vital Signs Pain Intensity: 0 Vital Signs Past 12 Hours Date Time Temp Pulse Resp B/P (MAP) Pulse Ox O2 Delivery O2 Flow Rate FiO2 01/01/18 09:12 65 14 100 01/01/18 09:12 36.7 65 14 01/01/18 09:11 140/88 01/01/18 09:07 68 12 100 01/01/18 09:07 68 12 01/01/18 09:06 132/89 01/01/18 09:02 67 10 01/01/18 09:02 66 10 138/87 100 01/01/18 08:57 64 14 100 01/01/18 08:57 63 14 01/01/18 08:56 146/89 01/01/18 08:52 67 15 01/01/18 08:52 67 15 100 01/01/18 08:51 140/90 01/01/18 08:47 68 13 01/01/18 08:47 67 13 100 01/01/18 08:46 133/88 01/01/18 08:42 73 13 100 01/01/18 08:42 74 13 01/01/18 08:41 137/80 01/01/18 08:37 68 14 01/01/18 08:37 67 14 100 01/01/18 08:36 141/87 01/01/18 08:35 135/98 01/01/18 08:27 37 71 16 129/88 100 Oxymask 7 01/01/18 05:35 36.7 73 18 154/95 98 Room Air Notes Mental Status: alert / awake / arousable, participated in evaluation Pt Amnestic to Procedure: Yes Nausea / Vomiting: adequately controlled Pain: adequately controlled Airway Patency, RR, SpO2: stable & adequate BP & HR: stable & adequate Hydration State: stable & adequate Anesthetic Complications: no major complications apparent
--- NOTE | 2018-01-01 09:17 | Anesthesiology Progress Note ---
Anesthesia Post Op Note Date & Time Jan 01, 2018 at 09:17 Vital Signs Pain Intensity: 0 Vital Signs Past 12 Hours Date Time Temp Pulse Resp B/P (MAP) Pulse Ox O2 Delivery O2 Flow Rate FiO2 01/01/18 09:12 65 14 100 01/01/18 09:12 36.7 65 14 01/01/18 09:11 140/88 01/01/18 09:07 68 12 100 01/01/18 09:07 68 12 01/01/18 09:06 132/89 01/01/18 09:02 67 10 01/01/18 09:02 66 10 138/87 100 01/01/18 08:57 64 14 100 01/01/18 08:57 63 14 01/01/18 08:56 146/89 01/01/18 08:52 67 15 01/01/18 08:52 67 15 100 01/01/18 08:51 140/90 01/01/18 08:50 Nasal Cannula 3 01/01/18 08:47 68 13 01/01/18 08:47 67 13 100 01/01/18 08:46 133/88 01/01/18 08:42 73 13 100 01/01/18 08:42 74 13 01/01/18 08:41 137/80 01/01/18 08:37 68 14 01/01/18 08:37 67 14 100 01/01/18 08:36 141/87 01/01/18 08:35 135/98 01/01/18 08:27 37 71 16 129/88 100 Oxymask 7 01/01/18 05:35 36.7 73 18 154/95 98 Room Air Notes Mental Status: alert / awake / arousable, participated in evaluation Pt Amnestic to Procedure: Yes Nausea / Vomiting: adequately controlled Pain: adequately controlled Airway Patency, RR, SpO2: stable & adequate BP & HR: stable & adequate Hydration State: stable & adequate Neuraxial Anesthesia: was administered, sensory block is resolving Anesthetic Complications: no major complications apparent
[2018-01-01] MEDS ORDERED: MoRPHine SULFATE 4 MG/ML 1 ML CARP\\VIAL IV PRN (09:30)
[2018-01-01] MEDS ORDERED: CEFTRIAXONE SOD INJ 2,000 MG in DEXTROSE 5% 50ML 50 ML IV ONE (12:00)
--- NOTE | 2018-01-01 12:41 | [facility] Operative Report ---
Operative Report Operative Date Jan 01, 2018. Pre-Operative Diagnosis Left Knee Degenerative Joint Disease Post-Operative Diagnosis Left Knee Degenerative Joint Disease Procedure(s) Performed Left Total Knee Arthroplasty Surgeon Dr. Panda Lottery Manager Surgeon(s) THONG Proctor Estimated Blood Loss 75 ml Findings severe medial disease and trochlear disease left knee Fluids 2000cc Specimens A. Left Knee Bone and Tissue Drains None Anesthesia Type MAC Spinal Regional Complication(s) none Disposition no Recovery Room / PACU Indications This 52 year old white female presented the office with complaints of intractable left knee pain. She had tried conservative care measures including oral pain medication, viscous supplementation, cortisone injections, and activity modification without improvement. He previously had left knee arthroscopy with debridement in June 2017 that showed considerable arthritic disease. She she elected to proceed with surgical intervention in hopes of alleviating her discomfort. Preoperative imaging was obtained. Description of Procedure Patient was administered a spinal anesthetic and then taken to the operating room where she was given sedation. She was prepped and draped in usual sterile fashion. Please see Dr. Panda's operative report for specifics of the procedure. I was present for the entire case from initial patient positioning through final wound closure. Assistance was provided in tissue traction, hemostasis, trial implant placement, final implant placement, and final wound closure. Patient was taken to the recovery room in satisfactory condition. I attest to the content of the Intraoperative Record and any orders documented therein. Any exceptions are noted below.
[2018-01-01] MEDS: OXYCODONE HCL IR 5 MG TAB (IMMEDIATE RELEASE) PO PRN ×3 (12:57→21:19)
[2018-01-01] MEDS ORDERED: D5W AND 1/2NSS + 20MEQ KCL 1,000 ML IV SCH (13:00)
[2018-01-01] MEDS: FERROUS GLUCONATE 324 MG TAB PO SCH ×2 (13:01→18:16)
[2018-01-01] MEDS: KETOROLAC TROMETHAMINE 30 MG/ML VIAL IV. SCH ×3 (13:09→23:39)
--- NOTE | 2018-01-01 13:26 | PROGRESS NOTE ---
DATE: 01/01/2018 Postop check status post left total knee replacement. At this point in time, the patient is doing well, is eating. She denies chest pain, shortness of breath, fever, chills, nausea, vomiting or headache. Vital signs are stable. She is afebrile. Neurovascular check, femoral sciatic nerve is normal. Wound clean and dry. Postop x-rays look excellent. ASSESSMENT: Doing well. Continue care pathway. Discharge tomorrow after PT/OT in the morning. I will be out of town and she will be taken care of by Abiel Jeffrey PA-C.
[2018-01-01] MEDS ORDERED: NURSING VERBAL MED ORDER ONE (13:30)
[2018-01-01] MEDS ORDERED: TRANEXAMIC ACID INJ 1,000 MG in SODIUM CHLORIDE 0.9% 100ML 100 ML IV SCH (14:00)
[2018-01-01] MEDS ORDERED: WARFARIN SOD 5 MG TAB PO SCH (16:00)
[2018-01-01] MEDS: BuPROPion SR 150 MG TABCR PO SCH (21:20)
[2018-01-01] MEDS: DOCUSATE SODIUM 100 MG CAP PO SCH (21:20)
[2018-01-02] MEDS: OXYCODONE HCL IR 5 MG TAB (IMMEDIATE RELEASE) PO PRN ×2 (02:00→08:47)
[2018-01-02 03:36] VITALS: BP 112/69; PULSE 70; TEMP 36.6; O2SAT 100
[2018-01-02] MEDS: KETOROLAC TROMETHAMINE 30 MG/ML VIAL IV. SCH (05:38)
[2018-01-02] MEDS ORDERED: ROPIVACAINE 5MG/ML 30 ML 150 MG, BUPIVACAINE 0.5% MPF INJ 30 ML, EpINEphrine HCL INJ 0.... INFIL SCH ×8 (06:00)
[2018-01-02 06:23] LABS: HEMOGLOBIN 8.6 g/dL (12.0-16.0); MEAN CORPUSCULAR HEMOGLOBIN 29.5 pg (25-34); MEAN CORPUSCULAR HGB CONC 33.1 g/dl (32-36); MEAN PLATELET VOLUME 8.9 fL (7.4-10.4); PLATELET COUNT 229 K/uL (130-400); RED CELL DISTRIBUTION WIDTH CV 12.9 % (11.5-14.5); RED CELL DISTRIBUTION WIDTH SD 41.5 fL (36.4-46.3); WHITE BLOOD COUNT 7.14 K/uL (4.8-10.8)
[2018-01-02 06:50] LABS: CALCIUM 8.1 mg/dl (8.5-10.1); CREATININE 0.73 mg/dl (0.60-1.20); POTASSIUM 3.6 mmol/L (3.5-5.1)
[2018-01-02] MEDS ORDERED: DEXAMETHASONE INJ 10 MG in SYRINGE 0 ML IV SCH (07:30)
[2018-01-02 08:01] VITALS: BP 114/68; PULSE 70; TEMP 36.9; O2SAT 99
--- NOTE | 2018-01-02 08:06 | Anesthesiology Progress Note ---
Anesthesia Post Op Note Date & Time Jan 02, 2018 at 08:05 Vital Signs Pain Intensity: 7.0 Vital Signs Past 12 Hours Date Time Temp Pulse Resp B/P (MAP) Pulse Ox O2 Delivery O2 Flow Rate FiO2 01/02/18 08:01 36.9 70 14 114/68 (83) 99 Room Air 01/02/18 03:36 36.6 70 15 112/69 (83) 100 Room Air 01/01/18 23:38 36.9 70 15 129/80 (96) 100 Room Air 01/01/18 23:37 Room Air Notes Mental Status: alert / awake / arousable, participated in evaluation Pt Amnestic to Procedure: Yes Nausea / Vomiting: adequately controlled Pain: adequately controlled Airway Patency, RR, SpO2: stable & adequate BP & HR: stable & adequate Hydration State: stable & adequate Neuraxial Anesthesia: was administered, sensory block resolved Anesthetic Complications: no major complications apparent
[2018-01-02] MEDS: BuPROPion SR 150 MG TABCR PO SCH (08:42)
[2018-01-02] MEDS: ATORVASTATIN 10 MG TAB PO SCH (08:42)
[2018-01-02 08:43] VITALS: O2SAT 99
[2018-01-02] MEDS: DULOXETINE HCL 60 MG CAP PO SCH (08:43)
[2018-01-02] MEDS: FERROUS GLUCONATE 324 MG TAB PO SCH (08:43)
[2018-01-02] MEDS ORDERED: PANTOprazole SOD 40 MG TAB PO SCH (09:00)
[2018-01-02] MEDS ORDERED: MULTIVITAMIN TAB PO SCH (09:00)
[2018-01-02] MEDS: DOCUSATE SODIUM 100 MG CAP PO SCH (09:05)
[2018-01-02] MEDS ORDERED: OXYC-57 PO (09:24)
[2018-01-02] MEDS ORDERED: WARF2TAB PO (09:24)
--- NOTE | 2018-01-02 09:28 | Discharge Instructions ---
Discharge Instructions Date of Service Jan 02, 2018. Admission Reason for Admission: Left Knee Degenerative Joint Disease Discharge Discharge Diagnosis / Problem: Left knee s/p total knee replacement Discharge Goals Goal(s): Decrease discomfort, Improve function, Increase independence Activity Recommendations Activity Limitations: as noted below Lifting Limitations: gradually increase as tolerated Exercise/Sports Limitations: until after follow-up appointment Shower/Bathe: keep incision dry Driving or Machine Use: No driving until cleared by Dr. Panda Weightbearing Status: Left weightbearing (as tolerated) . Instructions / Follow-Up Instructions / Follow-Up New Medicine: * You will likely be taking one or more of these medications: 1. Percocet - Take, as directed, when you need it, every four to six hours to control your pain. 2. Coumadin - Thins your blood to lessen the chance of forming a blood clot. The dose of this is different for each person and is based on your blood tests that are done twice a week. * The most common side effects of pain medicine and iron are nausea and constipation. If nausea or constipation is too much of a problem or if you have any questions about your new medicines or doses, call [facility] at . We will try to help you manage these issues. VERY IMPORTANT TO READ AND REVIEW" Blood Clots and Blood Thinning Medicine: * You are given Coumadin during the immediate post-operative period to lessen the risk of blood clots forming in your legs and/or lungs. Coumadin is usually given for six weeks after surgery. * The prescription is for 2 mg tablets. At discharge, you should understand your dose and take it all at the same time every day, preferably after dinner. * You need to get your blood checked 1 - 2 times per week for six weeks or as directed. * If your dose needs to change, we will call you. Do not take your medication on the day of the blood test until we call you. Pain: * The immediate post-operative period after knee replacement surgery is often quite painful. * You are given a prescription for pain medicine. You should take it, as directed, when you need it, especially before physical therapy and before going to bed. Pain that interferes with sleep is very common and can last several months. * You will likely need pain medicine for the first four to six weeks. It will not stop all of the pain. The pain will lessen and as you feel better, you may change to milder pain medicine such as Tylenol. * The most common side effects of pain medicine are nausea and constipation, so don't take more than you need. Physical Therapy: * You will have physical therapy two or three times each week for four to six weeks after your surgery in order to regain your knee range of motion and to retrain your knee to work properly. * It is just as important to make sure you are getting your knee perfectly straight as it is to regain your knee bend. * Taking a pain pill an hour before therapy can help you have a more productive and comfortable therapy session if needed. Home Exercise: * You were shown a series of exercises (heel props, heel slides, etc.) in the hospital. Do these exercises three to four times each day including the exercises you were shown in physical therapy. Walking: * Get up and walk several times each day. For the first four weeks, try not to stand or walk for more than one hour at a time. If you do stand or walk for more than one hour, you will not hurt anything, but your knee and leg will likely swell. * As you feel comfortable, you may change from the walker or crutches to a cane and then to independent walking. SELF CARE INSTRUCTIONS AFTER TOTAL KNEE REPLACEMENT A. You may need to continue a physical therapy program after discharge from the hospital. There are several options available to you. Your doctor will assist you in selecting the best one for you. 1. An out-patient facility 2 to 3 times a week for therapy or home therapy. 2. Continue working on all exercises taught to you in the hospital. Your goals should be to increase bending of your knee to 90 degrees and beyond and to fully straighten your knee. B. You may progress at your own pace from walking with a walker or crutches to a cane; then to no assistive devices. C. Make walking a part of your daily routine. Be up as much as comfortable with rest periods throughout the day. Rest with leg elevation is very important. Use the ice wrap frequently for the first 3-4 weeks. D. There are no restrictions on activities. You may ride in a car, shop, participate in sling operator and all social activities. E. Wear the long elastic stockings (BRITTANY hose) 20 hours a day for six weeks after surgery. They can be removed several times a day for laundering and for a shower. F. Do not place a pillow behind your knee when resting. A pillow at your ankle is okay. VERY IMPORTANT TO READ AND REVIEW A. Take Coumadin, Aspirin or Lovenox (blood thinning medications) as directed by your doctor. If on Coumadin, have a pro-time (blood test) drawn according to your doctor's instructions. This will tell the doctor how well the Coumadin is thinning your blood. 1. YOU WILL BE GIVEN AN ORDER AT DISCHARGE FOR PT/INR (BLOOD WORK). PLEASE HAVE THIS DONE INSTRUCTED. PLEASE CALL OUR OFFICE AFTER YOUR BLOODWORK IS COMPLETE SO WE CAN TRACK YOUR RESULTS. IF YOU ARE GOING TO OUTPATIENT PHYSICAL THERAPY, YOU WILL NEED TO GO TO OUTPATIENT TESTING TO HAVE IT DRAWN. B. There are a few signs you need to watch for after you are home. Call [facility] if you notice any of the followin. Increased severe knee pain. Some pain is expected especially when you exercise. 2. Increased swelling in your leg or knee; pain or swelling of the calf muscle in either lower leg. 3. Any fluid drainage from the incision. 4. Shortness of breath or chest pain. C. Please call [facility] at if you have any concerns or questions about your operation or recovery. The doctor or his nurse will return your call promptly. D. You must take antibiotics before dental work, bladder, bowel or other surgery. Call the office to obtain a prescription at least 2 days prior to your appointment. * CALL IF INCREASED PAIN, REDNESS, DRAINAGE OR FEVER GREATER THAT 101. * Sutures should be removed 12-14 days after surgery unless you are on chronic steriods, then it will be 14-18 days after surgery. Call your doctor if: * Temperature above 101 degrees F. * Pain not relieved by pain medicine ordered. * Increased drainage or redness from incision. * Notify your doctor with any questions or concerns. Current Hospital Diet Patient's current hospital diet: Regular Diet Discharge Diet Recommended Diet: Regular Diet Procedures Procedures Performed: Left Total Knee Arthroplasty Pending Studies Studies pending at discharge: no Medical Emergencies . Who to Call and When: Medical Emergencies: If at any time you feel your situation is an emergency, please call 911 immediately. . Non-Emergent Contact Non-Emergency issues call your: Primary Care Provider, Surgeon Call Non-Emergent contact if: temperature is above 101, wound has increased drainage, wound has increased redness, wound has increased pain, you have any medication questions . "Provider Documentation" section prepared by Abiel Carlisle PA-C. . VTE Core Measure Inpt VTE Proph given/why not?: Warfarin (Coumadin), T.E.DDaniel Stockings, SCD's [place] Drug Monitoring Program Search Results: no issues identified
--- NOTE | 2018-01-02 09:35 | Orthopedic Progress Note ---
Orthopedic Progress Note Date of Service Jan 02, 2018. Subjective Post OP Day: 1 Reports: feeling well, pain controlled w PO medications, Denies: complaints, chest pain, SOB, nausea / vomiting, light headedness, calf pain Additional Notes: States she is ready to go home, feels well. Knee hurts less now than it did pre- op. Objective calves soft nontender, N/V intact, capillary refill less than 2 sec., dressing C /D/I, incision C/D/I, A&O x3, toes mobile, CMS intact Scant drainage on dressings, no active bleeding, expected post op edema. Able to flex knee and do a SLR. Date Time Temp Pulse Resp B/P (MAP) Pulse Ox O2 Delivery O2 Flow Rate FiO2 01/02/18 08:43 99 Room Air 01/02/18 08:01 36.9 70 14 114/68 (83) 99 Room Air 01/02/18 07:45 Room Air 01/02/18 03:36 36.6 70 15 112/69 (83) 100 Room Air 01/01/18 23:38 36.9 70 15 129/80 (96) 100 Room Air 01/01/18 23:37 Room Air 01/01/18 19:35 36.8 77 18 98/60 (73) 99 Room Air 01/01/18 15:35 Room Air 01/01/18 15:17 37.0 75 18 127/80 (96) 97 Room Air 01/01/18 12:25 70 18 110/74 (86) 100 Nasal Cannula 2.0 01/01/18 11:25 78 18 104/66 (79) 100 Nasal Cannula 2.0 01/01/18 10:25 73 18 123/85 (98) 100 Nasal Cannula 2.0 01/01/18 09:52 63 18 144/90 (108) 100 Nasal Cannula 3.0 Laboratory Results 24 Hours: Test 01/02/18 05:54 Hematocrit 26.0 % Hemoglobin 8.6 g/dL Prothromb Time International Ratio 1.0 Prothrombin Time 10.8 SECONDS Assessment & Plan Assessment: Left knee post op day 1 total knee arthroplasty Plan: PT/OT today then D/C to home She will arrange outpt PT for sunday coumadin per nomogram. Dose today before D/C dressing changed this morning by me-wound looks excellent. Ambulating with walker continue TEDs after D/C for 6 weeks Discharge Planning Discharge Planning: home Pain Management: Percocet DVT Prophylaxis: TEDs, SCDs, Coumadin Therapy: Physical Therapy
[2018-01-02 09:51] VITALS: BP 114/68; PULSE 70; TEMP 36.9; O2SAT 99
--- NOTE | 2018-01-02 10:53 | Clinical Documentation Query ---
ELEUTERIO Sahu : CLINICAL DOCUMENTATION QUERY Patient is a 52 year old female who on 01/01 underwent right TKA. Preoperative H&H was 11.5 g/dl and 34.2%. POD #1, repeat values were 8.6 g/dl and 26%. Operative EBL was 75 ml's. Net I/O is positive for 1,136 ml's at this time. She is being monitored with hematology and I/O. As appropriate, consider documentation as suggested below. Thank you. In your clinical opinion is this patient being managed for: (x ) Acute blood loss and hemodilutional anemia ( ) Not Agree ( ) Other explanation of clinical findings (Please Explain) ( ) Unable to determine (Please Define) ( ) Need to Discuss The medical record reflects the following clinical findings, treatment, and risk factors. Clinical Indicators: As above Treatment:She is being monitored with hematology and I/O Risk Factors: Acute perioperative blood loss and IVF administration. Please clarify and document your clinical opinion in the progress notes and discharge summary. Terms such as "probable", "suspected", "likely", "questionable", "possible", or "still to be ruled out" are acceptable. IF IN AGREEMENT, YOU MUST DOCUMENT ABOVE DIAGNOSTIC STATEMENT IN DAILY PROGRESS NOTES AND DISCHARGE SUMMARY. This document is not part of the patient's record. Thank You, Hebert Pierce, [place] [phone]
--- NOTE | 2018-01-02 13:42 | DISCHARGE SUMMARY ---
CHIEF COMPLAINT: Left knee pain. HISTORY OF PRESENT ILLNESS: A 52-year-old female who underwent elective left total knee replacement for significant articular softening medial compartment with grade 4 changes there. She has failed conservative management including arthroscopic debridement over the last 24 months. X-rays reveal medial joint space narrowing, a slight varus deformity. Arthroscopic pictures revealed grade 4 disease. PAST MEDICAL HISTORY: Remarkable for cholesterolemia, anxiety, osteoarthritis, chronic low back pain, and obesity. PAST SURGICAL HISTORY: Include trigger thumb releases, tubal ligation, pneumothorax, history of a chest tube placement in 1994, ovarian cyst excision, debridement of her left knee in June of 2017 with no success. ALLERGIES: PENICILLIN, WHICH CAUSES RANDOM JOINT SWELLING; LEVAQUIN, WHICH CAUSES HIVES. She does fine with Ancef and Keflex. PREADMISSION MEDICATIONS: Include Cymbalta, Lipitor, trazodone, Voltaren gel and Wellbutrin. She will continue all those medications with the exception of the Voltaren gel and add Coumadin to keep INR 1.8-2.2, start with 4 mg daily. Check INR on Sunday. SOCIAL HISTORY: Reveals she lives with her and her daughter. She quit smoking. She is a former cook. Social drinking. She is . REVIEW OF SYSTEMS: Noncontributory. HOSPITAL COURSE: Has been uneventful. She has done well. She has walked several hundred feet. She is very happy. Her pain is well managed. ASSESSMENT AND PLAN: Status post left total knee replacement. We will discharge to home today. Follow up in 2 weeks for staple removal. INR 1.8-2.2 with 4 mg of Coumadin, to start daily now. Check INR on Sunday.
[2018-01-02] MEDS ORDERED: WARFARIN SOD 5 MG TAB PO ONE (16:00)
== END 2018-01-02 11:40 | disposition home or self-care (01) | DRG 470 ==
LOC: C.ACU 04:56 → C.3E 06:15 → ENRESERV 08:51
PROVIDERS: ADMIT Physical Medicine & Rehabilitation Sports Medicine; ATTEND Physical Medicine & Rehabilitation Sports Medicine
PROC: 0SRD0J9 Replacement of Left Knee Joint with Synthetic Substitute, Cemented, Open Approach (ICD-10-PCS; principal; 2018-01-01 07:00)
DX: M17.12 Unilateral primary osteoarthritis, left knee (principal); M21.162 Varus deformity, not elsewhere classified, left knee; E78.00 Pure hypercholesterolemia, unspecified; F32.9 Major depressive disorder, single episode, unspecified; F41.9 Anxiety disorder, unspecified; E66.9 Obesity, unspecified; Z68.32 Body mass index [BMI] 32.0-32.9, adult; Z87.891 Personal history of nicotine dependence; Z79.899 Other long term (current) drug therapy; Z88.0 Allergy status to penicillin; Z88.1 Allergy status to other antibiotic agents

== ENCOUNTER → 2018-03-04 | Outpatient (CLI) | payer OTHER ==
[~2018-03-04] MED LIST changes: +OXYC-57 PO; +WARF2TAB PO
== END | disposition home or self-care (01) ==
LOC: C.RDSM 13:56
PROVIDERS: ATTEND Physical Medicine & Rehabilitation Sports Medicine
DX: Z96.659 Presence of unspecified artificial knee joint (principal); M25.562 Pain in left knee